=== PATIENT | female | born 1955 | race Caucasian/White ===

== ENCOUNTER 2023-07-13 23:13 | Emergency (ER) | payer OTHER, SELFPAY ==
[2023-07-13 23:21] VITALS: BP 177/85; PULSE 65; RESP 20; TEMP 36.7; O2SAT 97; BMI 35.8
--- NOTE | 2023-07-13 23:24 | ED.GENADULT ---
HPI - General Adult General Chief complaint: Abdominal Pain Stated complaint: Has pain everywhere, Vomiting, Time Seen by Provider: 07/13/23 23:21 History of Present Illness HPI narrative: pt states at 1900 started abd pain - upper and L side mostly. vomiting, now dry heaves. normal BM today . had grilled cheese and jan milk. 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 Has also been vomiting. Nausea seems to have come along with abdominal pain across the mid and upper abdomen really than says it just hurts all over. She has had pain various areas of her body. Been tight around her back and then up into her shoulders. She even at onset also felt like it was tingling or cold into her feet. She was sweaty. Began vomiting. Now she feels cold. At onset thought that she needed to have a bowel movement and did succeed it is soft bowel movement but it did not seem to change anything. Did have a partial gastrectomy for a lipoma which somehow contributed to erosion into the stomach. This is not recent. No melena or hematochezia or hematemesis. Related Data Home Medications ?Medication ?Instructions ?Recorded ?Confirmed fluticasone propionate 50 intranasal PRN 10/28/22 04/12/23 mcg/actuation nasal spray,suspension sertraline 100 mg tablet 100 mg PO BID 10/28/22 07/13/23 vitamin E (dl, acetate) 45 mg (100 45 mg PO QDAY 10/28/22 04/12/23 unit) capsule gabapentin 300 mg capsule 300 mg PO 3XD 04/12/23 04/12/23 nitroglycerin 0.4 mg sublingual mg sublingual 04/12/23 04/12/23 tablet cetirizine .ROUTE 07/13/23 Previous Rx's ?Medication ?Instructions ?Recorded tamsulosin 0.4 mg capsule (Flomax) 0.4 mg PO DAILY Ureteral spasm #15 07/14/23 caps Allergies Allergy/AdvReac Type Severity Reaction Status Date / Time No Known Drug Allergies Allergy Verified 07/14/23 01:30 Review of Systems Status of ROS: Reports: 6 or more systems reviewed and unremarkable except as noted in History and below PFSH PFS Social History Smoking Status: Never smoker Do you use any of these nicotine containing products: None How often do you have a drink containing alcohol: never AUDIT-C Alcohol total score: 0 Non-prescribed substance use: denies use Exam Narrative: Exam Narrative: Appears uncomfortable. Has dry heaves at 1 point. Does have an emesis bag nearby. Oropharynx is dry to sticky. Lungs appear to be clear. She is mildly labored in her breathing but not particularly tachypneic. Heart in regular rate and rhythm. Abdomen with diminished bowel sounds is soft diffusely. She is also diffusely tender. Extremities are well perfused. No lower extremity edema. Cranial nerves 2-12 intact. Const: Vital Signs, click to edit/add: Vital Signs - 24 hr 07/13/23 23:21 07/14/23 01:17 07/14/23 02:24 Temperature 98.1 F 98.1 F Pulse Rate [Pulse Oximeter] 65 Respiratory Rate 20 Blood Pressure [Ri ght Upper Arm] 177/85 H Pulse Oximetry 97 95 Oxygen Delivery Me thod Room Air 07/14/23 02:26 07/14/23 02:27 Temperature Pulse Rate [Pulse Oximeter] 65 Respiratory Rate 20 16 Blood Pressure [Ri ght Upper Arm] 158/79 H Pulse Oximetry 96 Oxygen Delivery Me thod Room Air Documenting provider has reviewed patient's vital signs: yes Course Vital Signs Vital signs: Initial Vital Signs Temperature 98.1 F 07/13/23 23:21 Temperature Source Temporal Artery Scan 07/13/23 23:21 Pulse Rate 65 07/13/23 23:21 Respiratory Rate 20 07/13/23 23:21 Blood Pressure 177/85 H 07/13/23 23:21 Blood Pressure Mean 115 H 07/13/23 23:21 Blood Pressure Position Sitting 07/13/23 23:21 Pulse Oximetry 97 07/13/23 23:21 Oxygen Delivery Method Room Air 07/13/23 23:21 Vital Signs Temperature 98.1 F 07/13/23 23:21 Pulse Rate 65 07/13/23 23:21 Respiratory Rate 20 07/13/23 23:21 Blood Pressure 177/85 H 07/13/23 23:21 Pulse Oximetry 97 07/13/23 23:21 Oxygen Delivery Method Room Air 07/13/23 23:21 Temperature 98.1 F 07/14/23 02:24 Pulse Rate 65 07/14/23 02:26 Respiratory Rate 16 07/14/23 02:27 Blood Pressure 158/79 H 07/14/23 02:26 Pulse Oximetry 96 07/14/23 02:27 Oxygen Delivery Method Room Air 07/14/23 02:27 Medications Administered Medications: Discontinued Medications Generic Name Dose Route Start Last Admin Trade Name Freq PRN Reason Stop Dose Admin Sodium Chloride 1,000 mls @ 1,000 mls/hr 07/13/23 23:31 07/14/23 01:00 0.9 % Sodium Chloride 1000 Ml IV 07/14/23 00:30 Infused .Q1H ONE Infusion Ketorolac Tromethamine 15 mg 07/14/23 00:52 07/14/23 01:00 Ketorolac 15 Mg/Ml Inj IVP 07/14/23 00:53 15 mg ONCE ONE Administration Morphine Sulfate 4 mg 07/13/23 23:31 07/13/23 23:56 Morphine 4 Mg/Ml Inj IVP 07/13/23 23:32 4 mg ONCE ONE Administration Ondansetron HCl 4 mg 07/13/23 23:31 07/13/23 23:56 Ondansetron 2 Mg/Ml Inj IVP 07/13/23 23:32 4 mg ONCE ONE Administration Promethazine HCl 12.5 mg 07/14/23 01:09 07/14/23 01:26 Promethazine 25 Mg/Ml Inj IVP 07/14/23 01:10 12.5 mg ONCE ONE Administration Tamsulosin HCl 0.4 mg 07/14/23 02:14 07/14/23 02:24 Tamsulosin Hcl 0.4 Mg Capsule PO 07/14/23 02:15 0.4 mg ONCE ONE Administration Medical Decision Making MDM Narrative Medical decision making narrative: Seems to have some gastritis symptomatology with no unusual pain response however certainly could be vascular disruption or small bowel obstruction that she did have this bowel movement earlier. Certainly would appreciate something for pain I will order for some morphine. Will also give Zofran and a L normal saline. Labs are pending. Symptoms are improved. White count is elevated. Not significantly so. Might be more margination. Urinalysis with hematuria but not with significant evidence of infection. There may be a ureteral stone here. CT imaging was done and I did review these images. See radiology over-read as below TECHNIQUE: CT abdomen and pelvis acquired with 100 cc of Omnipaque 350 IV contrast. COMPARISON: None. FINDINGS: Lower chest: 2 mm right middle lobe nodule. Lung bases are otherwise clear. Liver: Unremarkable. Normal in size and attenuation. No suspicious masses. Gallbladder and bile ducts: Unremarkable. No stones or inflammation. No biliary dilatation. Pancreas: Unremarkable. No mass or inflammation. Spleen: Postsurgical clips along the posterior splenic hilum. Normal in size. No masses. Adrenal glands: Unremarkable. No nodules. Kidneys: Bilateral parapelvic cysts and extrarenal pelvises. Mild left-sided hydroureter secondary to a punctate stone at the left ureterovesicular junction. Mild periureteral inflammatory stranding proximally. Mild asymmetric left perinephric stranding. Unremarkable right ureter and urinary bladder. GI tract: Postsurgical clips along the greater curvature of the stomach. Diverticulosis without pericolonic inflammation. No obstruction. Normal appendix. Vasculature: Abdominal aorta is normal in caliber. Mesenteric arteries are patent. Lymph nodes: No lymphadenopathy. Peritoneum/Abdominal Wall: Small fat-containing upper abdominal ventral hernia no free air or significant free fluid. Pelvis: Unremarkable. Bones: Unremarkable for age. IMPRESSION: 1. Punctate stone at the left ureterovesicular junction with associated mild proximal hydroureter and left perinephric stranding. Probable some degree of hydronephrosis on the left as well; however, the presence of the parapelvic cysts and dilated extrarenal pelvis impairs evaluation. 2. Parapelvic cysts and dilated extrarenal pelvis on the right without findings of obstructive uropathy. However, a UPJ stenosis can not be entirely excluded. Apparent ureteral stone. I think this is a good explanation for her discomfort. With escalation in some nausea given promethazine and also tamsulosin. Overall improved for departure See patient discharge plan for further discussion Medical Records Medical records reviewed: Yes I reviewed the patient's medical records Lab Data Lab results reviewed: Yes I reviewed the patient's lab results Labs: Lab Results 07/13/23 07/13/23 07/14/23 Range/Units 23:40 23:50 00:00 WBC 13.50 H (4.50-11.00) K/uL RBC 4.50 (4.00-5.20) m/uL Hgb 14.5 (12.0-16.0) gm/dL Hct 43.5 (33.0-51.0) % MCV 97 (80-100) fL MCH 32 (26-34) pg MCHC 33 (32-36) gm/dL RDW Coeff of [place] 12.3 (11.5-15.5) % Plt Count 228 (140-440) K/uL Neut % (Auto) 89.3 H (42.0-72.0) % Lymph % (Auto) 6.9 L (20-44) % [place] % (Auto) 3.3 (0.0-11.0) % Eos % (Auto) 0.1 (0.0-7.0) % Baso % (Auto) 0.1 (0.0-3.0) % Neut # (Auto) 12.10 H (1.7-7.0) K/uL Lymph # (Auto) 0.90 (0.90-2.90) K/uL [place] # (Auto) 0.40 (0.00-0.90) K/UL Eos # (Auto) 0.00 (0.00-0.50) K/uL Baso # (Auto) 0.00 (0.00-0.30) K/uL Abs Immat Gran (auto) 0.00 (0.00-0.30) K/uL Imm/Tot Granulo (auto) 0.3 % D-Dimer Quant (PE/DVT) 0.71 H (0.00-0.50) ug/ml Sodium 141 (135-149) mmol/L Potassium 4.1 (3.6-5.1) mmol/L Chloride 106 (96-114) mmol/L Carbon Dioxide 22 (20-32) mmol/L Anion Gap 13 (7-15) mEq/L BUN 25 (7-30) mg/dL Creatinine 1.0 (0.5-1.5) mg/dL Estimated Creat Clear 49.80 Estimated GFR 62 ml/min Glucose 199 H (60-115) mg/dL Lactate 3.4 H (0.5-1.9) mmol/L Calcium 9.6 (8.4-10.6) mg/dL Total Bilirubin 0.7 (0.1-1.5) mg/dL Direct Bilirubin 0.5 (0.0-0.5) mg/dL AST 33 (12-35) U/L ALT 28 (4-35) U/L Alkaline Phosphatase 79 (40-150) U/L Troponin I < 0.01 L (0.01-0.04) ng/mL C-Reactive Protein 0.6 (0.5-1.0) mg/dL NT-Pro-B Natriuret Pep 85 pg/mL Total Protein 8.0 (6.0-8.3) g/dL Albumin 4.7 (3.3-5.0) g/dL Lipase 122 (23-300) U/L Urine Color Yellow (Yellow) Urine Appearance Cloudy A (Clear) Urine pH 7.5 (5.0-8.5) Ur Specific [place] 1.020 (1.000-1.030) Urine Protein Negative (Negative) Urine Glucose (UA) Trace A (Negative) Urine Ketones 4+ A (Negative) Urine Blood 1+ A (Negative) Urine Nitrite Negative (Negative) Urine Bilirubin Negative (Negative) Urine Urobilinogen 0.2 (0.2-1.0) Ur Leukocyte Esterase Negative (Negative) Urine RBC 2-5 A (0-2) Urine WBC 0-2 (0-5) Ur Squamous Epith Cells Few (None-Few) Amorphous Sediment Moderate A (None) Urine Bacteria Few A (None) ECG Data Attestation: I personally reviewed and interpreted this ECG as follows: (Sinus rhythm at a rate of 59. Baseline irritability ) Discharge Plan Discharge Clinical Impression: Left ureteral stone, Ureteral colic, Vomiting, Dehydration Patient Disposition: Home w/ Parent or Adult Condition: Improved Additional Instructions: Focus on hydration. Might treat this a bit like a stomach bug as well considering how much vomiting you have been doing. Consider a slow advance of diet over the next 24-36 hours. Start with diluted juices, soup broths, rice, toast, crackers. You might also take famotidine once or twice daily. This is available [id number] as an antacid. Consider straining your urine over this next week. You might take Flomax daily until you are sure the stone has passed. This can help with spasm, cramping type pain. Can take 600-800 mg of ibuprofen per dose. Also prescribing Prompton and Zofran from [facility]. Prescriptions: New tamsulosin [Flomax] 0.4 mg capsule 0.4 mg PO DAILY Qty: 15 0RF No Action sertraline 100 mg tablet 100 mg PO BID fluticasone propionate 50 mcg/actuation spray,suspension intranasal PRN Patient Comments: [NO ORIGINAL SIG] vitamin E (dl, acetate) 45 mg (100 unit) capsule 45 mg PO QDAY gabapentin 300 mg capsule 300 mg PO 3XD nitroglycerin 0.4 mg tablet, sublingual sublingual cetirizine [Zyrtec] .ROUTE Follow Up/Referrals: Olivia Trejo DO [Primary Care Provider] - Stand Alone Forms: [facility] Info Instructions
[2023-07-13 23:47] LABS: Lactate* 3.4 mmol/L (0.5-1.9)
[2023-07-13 23:48] LABS: Basophils Percent Auto 0.1 % (0.0-3.0); Eosinophils Percent Auto 0.1 % (0.0-7.0); Hematocrit 43.5 % (33.0-51.0); Hemoglobin* 14.5 gm/dL (12.0-16.0); Immature Granulocytes Pct Auto 0.3 %; Lymphocytes Percent Auto 6.9 % (20-44); Mean Corpuscular HGB Conc 33 gm/dL (32-36); Mean Corpuscular Hemoglobin 32 pg (26-34); Mean Corpuscular Volume 97 fL (80-100); Monocytes Percent Auto 3.3 % (0.0-11.0); Neutrophils Percent Auto 89.3 % (42.0-72.0); Platelet Count* 228 K/uL (140-440); RDW Coefficient of Variation % 12.3 % (11.5-15.5)
[2023-07-13 23:53] LABS: Slide Review Reflex No
[2023-07-13] MEDS: MORPHINE 4 MG/ML INJ IVP (23:56)
[2023-07-13] MEDS: 0.9 % SODIUM CHLORIDE 1000 ml 1,000 ML IV (23:56)
[2023-07-13] MEDS: ONDANSETRON 2 MG/ML inj 4 MG IVP (23:56)
[2023-07-13 23:58] LABS: Appearance Urine Cloudy (Clear); Bilirubin Urine Negative (Negative); Blood Urine 1+ (Negative); Color Urine Yellow (Yellow); Glucose Urine Trace (Negative); Ketones Urine 4+ (Negative); Leukocyte Esterase Urine Negative (Negative); Nitrite Urine Negative (Negative); Protein Urine Negative (Negative); Urobilinogen Urine 0.2 (0.2-1.0); pH Urine 7.5 (5.0-8.5)
[2023-07-14 00:10] LABS: Albumin* 4.7 g/dL (3.3-5.0); Chloride* 106 mmol/L (96-114)
[2023-07-14 00:11] LABS: Potassium* 4.1 mmol/L (3.6-5.1); Sodium* 141 mmol/L (135-149)
[2023-07-14 00:12] LABS: D Dimer Quantitative* 0.71 ug/ml (0.00-0.50)
[2023-07-14 00:13] LABS: Amorphous Sediment Urine Moderate; Bacteria Urine Few; Squamous Epithelial Cell Urine Few (None-Few); WBC Urine 0-2 (0-5)
[2023-07-14 00:13] LABS: Estimated Glomerular Filt Rate 62 ml/min
[2023-07-14 00:14] LABS: Alanine Aminotransferase* 28 U/L (4-35); Alkaline Phosphatase* 79 U/L (40-150); Anion Gap 13 mEq/L (7-15); Aspartate Amino Transferase* 33 U/L (12-35); Bilirubin Direct* 0.5 mg/dL (0.0-0.5); Bilirubin Total* 0.7 mg/dL (0.1-1.5); Blood Urea Nitrogen* 25 mg/dL (7-30); Carbon Dioxide* 22 mmol/L (20-32); Glucose* 199 mg/dL (60-115); Lipase* 122 U/L (23-300)
[2023-07-14 00:15] LABS: Calcium* 9.6 mg/dL (8.4-10.6)
[2023-07-14 00:17] LABS: C Reactive Protein* 0.6 mg/dL (0.5-1.0)
[2023-07-14 00:25] LABS: NT Pro B Type NatriureticPept* 85 pg/mL
[2023-07-14 00:31] LABS: Troponin I* < 0.01 ng/mL (0.01-0.04)
--- NOTE | 2023-07-14 00:34 | CRLHL7_ITS ---
For Patients: As a result of the Century Cures Act, medical imaging exams and procedure reports are released immediately into your electronic medical record. You may view this report before your referring provider. If you have questions, please contact your health care provider. INDICATION: Left upper quadrant pain, vomiting, hematuria. TECHNIQUE: CT abdomen and pelvis acquired with 100 cc of Omnipaque 350 IV contrast. COMPARISON: None. FINDINGS: Lower chest: 2 mm right middle lobe nodule. Lung bases are otherwise clear. Liver: Unremarkable. Normal in size and attenuation. No suspicious masses. Gallbladder and bile ducts: Unremarkable. No stones or inflammation. No biliary dilatation. Pancreas: Unremarkable. No mass or inflammation. Spleen: Postsurgical clips along the posterior splenic hilum. Normal in size. No masses. Adrenal glands: Unremarkable. No nodules. Kidneys: Bilateral parapelvic cysts and extrarenal pelvises. Mild left-sided hydroureter secondary to a punctate stone at the left ureterovesicular junction. Mild periureteral inflammatory stranding proximally. Mild asymmetric left perinephric stranding. Unremarkable right ureter and urinary bladder. GI tract: Postsurgical clips along the greater curvature of the stomach. Diverticulosis without pericolonic inflammation. No obstruction. Normal appendix. Vasculature: Abdominal aorta is normal in caliber. Mesenteric arteries are patent. Lymph nodes: No lymphadenopathy. Peritoneum/Abdominal Wall: Small fat-containing upper abdominal ventral hernia no free air or significant free fluid. Pelvis: Unremarkable. Bones: Unremarkable for age. IMPRESSION: 1. Punctate stone at the left ureterovesicular junction with associated mild proximal hydroureter and left perinephric stranding. Probable some degree of hydronephrosis on the left as well; however, the presence of the parapelvic cysts and dilated extrarenal pelvis impairs evaluation. 2. Parapelvic cysts and dilated extrarenal pelvis on the right without findings of obstructive uropathy. However, a UPJ stenosis can not be entirely excluded. Please note that all CT scans at this facility use dose modulation, iterative reconstruction, and/or weight-based dosing when appropriate to reduce radiation dose to as low as reasonably achievable. Dictated by Noel Doty MD @ 07/14/2023 1:24:32 AM (Electronically Signed)
[2023-07-14] MEDS: KETOROLAC 15 MG/ML inj IVP (01:00)
[2023-07-14 01:17] VITALS: O2SAT 95
[2023-07-14] MEDS: PROMETHAZINE 25 MG/ML INJ 12.5 MG IVP (01:26)
[2023-07-14 02:24] VITALS: TEMP 36.7
[2023-07-14] MEDS: TAMSULOSIN HCL 0.4 MG CAPSULE PO (02:24)
[2023-07-14 02:26] VITALS: BP 158/79; PULSE 65; RESP 20
[2023-07-14 02:27] VITALS: RESP 16; O2SAT 96
== END 2023-07-14 02:28 | disposition home or self-care (01) ==
PROVIDERS: Emergency Provider Family Medicine; PCP Family Medicine
DX: N20.1 Calculus of ureter (principal); E86.0 Dehydration
CPT/HCPCS: 36415; 74177; 80048; 80076; 81001; 83605; 83690; 83880; 84484; 85025; 85379; 86140; 87086; 93005; 94761; 96374; 96375; 99284; 99285; A9270; J1885; J2270; J2405; J2550; J7030; Q9967

== ENCOUNTER 2024-10-08 13:00 | Outpatient (RCR) | payer OTHER, SELFPAY | END 2024-12-19 08:31 | disposition home or self-care (01) | PROVIDERS: PCP Family Medicine; Visit Provider Family Medicine | DX: M79.661 Pain in right lower leg (principal); M25.571 Pain in right ankle and joints of right foot; Z51.89 Encounter for other specified aftercare | CPT/HCPCS: 97110; 97112; 97161 ==